=== PATIENT | female | born 1935 | race Caucasian/White ===

== ENCOUNTER 2016-12-23 22:29 | Outpatient (CLI) | payer MEDICARE, OTHER | END 2016-12-23 22:30 | disposition short-term general hospital (02) | LOC: EMS 22:29 | PROVIDERS: ATTEND Surgery | DX: R68.89 Other general symptoms and signs (principal); Z79.01 Long term (current) use of anticoagulants | CPT/HCPCS: A0425; A0429 ==

== ENCOUNTER 2017-10-01 09:12 | Outpatient (CLI) | payer MEDICARE, OTHER ==
[2017-10-01] MEDS ORDERED: ALBUTEROL NEB 2.5 MG/3 ML INH ONE (11:00)
== END 2017-10-01 09:13 | disposition home or self-care (01) ==
LOC: RT 09:12
PROVIDERS: ATTEND Internal Medicine
DX: R06.00 Dyspnea, unspecified (principal)
CPT/HCPCS: 94060; 94664; 94729

== ENCOUNTER 2022-02-08 15:00 | Outpatient (CLI) | payer MEDICARE, OTHER ==
[2022-02-08 16:15] VITALS: BP 124/62
--- NOTE | 2022-02-08 16:15 | SLEEP CARE CONSULTATION ---
Information from patient questionnaire entered by Alba Meza. I have reviewed and concur with the information entered by Alba Meza. This document represents the service I personally performed and the decisions made by me, Leigha Ansari ARNP. History of Present Illness Service Date and Time: 02/08/2022 1500 Reason for Visit: New patient, Previously diagnosed sleep apnea, sleep apnea on CPAP therapy Accompanied by: grandchild Chief Complaint: reports: Other (update supplies) Usual bedtime: 10pm Time it takes to fall asleep: depends Snores at night: Yes Observed to quit breathing while asleep: Yes Sleeps alone due to snoring: No Number of times waking at night: 2 Reasons for waking at night: reports: Bathroom Toss, Turn, or Twitch while sleeping: Yes Recalls having dreams: Yes Usually gets out of bed at: anytime Feels refreshed in the morning: No Morning headache: No Sleepy or fatigued during the day: Yes Ever fallen asleep while driving: No Takes day naps: Yes Dreams during day naps: No Prior sleep studies: Yes Year and Where: [facility], unsure of date Additional HPI information: NIRAJ WILDE was previously diagnosed to have unknown, AHI unknown, sleep apnea- hypopnea syndrome and comes in today with granddaughter to establish care for BIPAP therapy. - Parasomnia Symptoms Ever been unable to move upon waking from sleep: No Walks in sleep: No Talks in sleep: Yes Ever acted out dreams in sleep: No Ever felt weak in the knees when startled or emotional: No Bothered by creepy, crawly, restless sensations in legs: No Problems with memory or concentration: No CPAP Compliance Data - Data Reviewed with Patient Average duration of nightly device use: 8 hours 27 minutes Compliance rate %: 100 (90/90 days used) Current pressure setting (cmH2O): 16/10 Average residual AHI: 24.3 Central apnea: 6 Obstructive apnea: 16.7 Hypopnea: 1.6 Compliance data discussion: She is getting her supplies from [facility]. She is using a nasal cushion that goes over her nose and the hose is in front. She changed her mask recently and has a backup mask if needed. Subjective Patient concerns: denies: aerophagia, mask discomfort, mask leak noise, condensation in mask/hose, nasal congestion, dry mouth, nose, throat, epistaxis Observed to snore while using device: No Current pressure setting perceived as: comfortable On therapy, patient: reports: sleeping better, awakening more refreshed, being more awake and alert during the day, more rested overall. denies: drowsiness while driving Initial [place] Sleepiness Scale score: 5 (02/08/2022) Past Medical History Past Medical History: reports: Hypertension, Arthritis, Arrythmia (Atrial fibrillation), Asthma, Other (A.FIB) Social History The patient's occupation is a RE. Patient is and lives in [place]. Have you smoked in the past 12 months: No Alcohol use: No Caffeine use: Yes Caffeine amount and frequency: 1 Pepsi a day Family History Family history of sleep disordered breathing: Yes Family Hx Sleep Apnea: Other: Snoring (SON), Sleep apnea - Treated (SON) Allergies and Home Medications Known drug allergies: No Drug allergies reviewed: Yes (NKDA) Home medication list reviewed: Yes (see scanned list) Review of Systems Weight loss over past 5 years: 25 Cardiovascular: reports: high blood pressure Respiratory: reports: wheeze Ear/Nose/Throat: reports: nasal congestion, tonsillectomy Musculoskeletal: reports: back pain, muscle pain or cramping Immunologic: reports: sneezing Physical Exam Vital signs obtained and entered by: ALBA Hernandez MA Blood Pressure: 124/62 (LEFT ARM) Cuff size: regular Heart Rate: 64 O2 Saturation: 99 Height: 5 ft 1 in Weight: 199 lb 3.2 oz Body Mass Index: 37.6 BMI Classification: Obese Neck circumference: 17 Heart: regular rate and rhythm Lungs: clear bilaterally Impression and Plan 1. Obstructive Sleep Apnea-Hypopnea Syndrome, unknown, with good treatment compliance and fair apnea control with elevated residual AHI. On BIPAP therapy, the patient has better sleep quality and is more rested overall. Patient has never had a follow-up with a sleep provider since she started using her BiPAP. Upon reviewing her therapy report her residual AHI is at 24.3. She states she thinks it starts at 4 but her machine is set at 16/10 centimeters H2O BiPAP settings. She does have an old REMstar Jess machine which may not be de livering appropriate pressure to control her sleep apnea. I will write a prescription to update her BIPAP machine. We will try to obtain a copy of her last sleep study from [facility]. If unable to do this I will order a sleep study to verify her diagnosis and severity. Patient voiced understanding and agreement with plan of care. Patient's apnea severity and rationale for treatment to reduce apnea, improve sleep quality and reduce cardiovascular and cerebrovascular events was reviewed. I also reviewed the benefit of consistent device use of BIPAP for hypertension, arrhythmia and asthma. 2. Obesity, unspecified. Currently patients BMI is 37.6. Obesity increases the risk of apnea, CPAP pressure requirements and overall health risks especially cardiovascular and diabetes. Thus patient is advised to continue to try to lose weight. Weight loss can be done with reducing portion size, reducing refined foods and balancing content with vegetables, fruit and whole grain foods. In addition, patient encouraged to get regular exercise. * Try to obtain copy of last sleep study * Continue BIPAP pressure at 16/10 cmH2O * Update supplies * Notify me if snoring with mask or feeling that the pressure is too much or too little * Attempt to lose weight * Call this office if any problems using CPAP * Return for follow up one month after obtaining new device, or sooner if concerns arise Counseling Topics: Spare mask, Weight loss health impact Prescriptions: BiPAP, Device supplies Visit Type: In Office Time Spent with Patient (minutes): 35 Provider Statement: I spent 100% of the Face to Face Visit with the patient with greater than 50% spent counseling the patient and coordination of care.
== END 2022-02-08 15:01 | disposition home or self-care (01) ==
LOC: SC 15:00
PROVIDERS: ATTEND Nurse Practitioner Family
DX: G47.33 Obstructive sleep apnea (adult) (pediatric) (principal); E66.9 Obesity, unspecified; Z68.37 Body mass index [BMI] 37.0-37.9, adult
CPT/HCPCS: 99203; G0463; 99212

== ENCOUNTER 2022-04-06 19:35 | Outpatient (CLI) | payer MEDICARE, OTHER | END 2022-04-06 19:36 | disposition home or self-care (01) | LOC: SC 19:35 | PROVIDERS: ATTEND Nurse Practitioner Family | DX: G47.33 Obstructive sleep apnea (adult) (pediatric) (principal); I48.91 Unspecified atrial fibrillation; G47.61 Periodic limb movement disorder | CPT/HCPCS: 95810 ==

== ENCOUNTER 2022-04-18 16:25 | Outpatient (CLI) | payer MEDICARE, OTHER ==
--- NOTE | 2022-04-18 16:09 | SLEEP CARE CONSULTATION ---
Information from patient questionnaire entered by Alba Meza. I have reviewed and concur with the information entered by Alba Meza. This document represents the service I personally performed and the decisions made by me, Leigha Ansari ARNP. History of Present Illness Service Date and Time: 04/18/2022 1540 Accompanied by: Daughter Initial [place] Sleepiness Scale score: 5 (02/08/2022) Current [place] Sleepiness Scale score: 0 (04/18/22) Additional HPI information: NIRAJ WILDE returns via video Telehealth visit for follow up and results of the recently performed polysomnography. Patient with history of BIPAP use for her sleep apnea with settings at 16/10 cmH2O. She will continue BIPAP use. She is in need of a new device and supplies. Patient does not drink alcohol. Patient was cautioned about risks of drowsy driving until sleepiness symptoms resolve. Patient denies drowsy driving. Sleep Study - Results Type of Sleep Study: Polysomnography (COMPLETED 04/06/22) Prior sleep studies: Yes Year and Where: [place], unsure of date Polysomnography/Home Sleep Study results: IMPRESSION: The quality of the study is good. The patient had reduced sleep efficiency due to frequent and prolonged awakenings throughout the night. The sleep architecture was abnormal for sleep fragmentation and lack of slow wave sleep (N3). Respiratory monitoring showed severe obstructive sleep apnea-hypopnea (AHI = 35.0) associated with frequent arousals, oxyhemoglobin desaturation and moderate hypoxia ([place]ton oxygen saturation of 74%). There appeared to also be REM-related hypoventilation. The respiratory events occurred independently of sleep stage and body position (supine AHI = 40.0; non-supine = 35.00). Snore was infrequent and light in intensity. There was moderate periodic leg movement of sleep contributing to the sleep fragmentation. Cardiac rhythm was atrial fibrillation. No abnormal behavior (parasomnia) observed during the night. Allergies and Home Medications Drug allergies reviewed: Yes (NKDA) Home medication list reviewed: Yes (no changes) Review of Systems Review of systems same as previous: Yes (no changes) Physical Exam Vital signs obtained and entered by: ALBA Hernandez MA Height: 5 ft (PER PT) Weight: 200 lb (PER PT) Body Mass Index: 39.0 BMI Classification: Obese Impression and Plan 1. Obstructive Sleep Apnea-Hypopnea Syndrome, severe, with lowest oxygen saturation of 74%. Obviously this is the cause of the patients symptoms of unrefreshed sleep, and excessive daytime sleepiness. Positive pressure therapy could benefit atrial fibrillation, hypertension and asthma. As mentioned above, the patient will be continued on the nasal BIPAP therapy with pressure set at 16/10 cmH2O. Compliance guidelines also reviewed. She will call when she has her new device to set up a compliance follow up. 2. Atrial fibrillation. Patient has a history of atrial fibrillation. She will follow up with her courier driver as needed. 3. Hypoxemia, moderate, with a payton oxygen saturation of 74% and 19.9 minutes spent under 90%. Her baseline oxygen saturation was normal with an average oxygen saturation of 93%. 4. Periodic limb movement, moderate, that did fragment patients sleep. Periodic limb movement of sleep (PLMS) is characterized by episodes of repetitive limb movements that occur during sleep and usually involve the lower limbs. The etiology is unknown. Caffeine can also aggravate PLMS and should be avoided. Sleep hygiene methods can also improve sleep as well as lifestyle changes such as regular exercise. Patient was advised that no treatment is needed at this time. If symptoms increase, then further evaluation is indicated. * Continue BiPAP therapy, pressure at 16/10 cmH2O. * Update machine * Update supplies * Attempt to lose weight. * Avoid alcohol consumption near bedtime. * Avoid supine sleep until using BIPAP. * The patient is again cautioned about driving until sleepiness completely resolves. * Return one month after BiPAP obtained. I will assess response to therapy and compliance at that time. Counseling Topics: Weight loss health impact Prescriptions: BiPAP (update), Device supplies Visit Type: Telehealth Phone Video Type: Chaz Patient Location: Home Other Participants: Child (daughter) Location of Provider: Office Patient agrees and consents to this telehealth visit type: Yes Patient agrees to have their insurance billed: Yes Time Spent with Patient (minutes): 14 Provider Statement: I spent 100% of the Telehealth Phone Call with the patient with greater than 50% spent counseling the patient and coordination of care.
== END 2022-04-18 16:26 | disposition home or self-care (01) ==
LOC: SC 16:25
PROVIDERS: ATTEND Nurse Practitioner Family
DX: G47.33 Obstructive sleep apnea (adult) (pediatric) (principal); I48.91 Unspecified atrial fibrillation; R09.02 Hypoxemia; G47.61 Periodic limb movement disorder; E66.9 Obesity, unspecified; Z68.39 Body mass index [BMI] 39.0-39.9, adult

== ENCOUNTER 2022-06-01 10:02 | Outpatient (CLI) | payer MEDICARE, OTHER ==
[2022-06-01 10:48] VITALS: BP 124/72
--- NOTE | 2022-06-01 10:48 | SLEEP CARE CONSULTATION ---
Information from patient questionnaire entered by Alba Meza. I have reviewed and concur with the information entered by Alba Meza. This document represents the service I personally performed and the decisions made by me, Leigha Ansari ARNP. History of Present Illness Service Date and Time: 06/01/2022 1002 Previous diagnosis: Severe, Obstructive Sleep Apnea-Hypopnea Syndrome AHI: 35.0 (in 2021) Reason for follow up: first compliance, first compliance after device update Accompanied by: Liz Equipment type: CPAP (RESMED Aircurve 10 s/u 04/30/2022) Equipment obtained from: [employer] (getting supplies) Mask style: Nasal (over the nose) Mask brand: Respironics (Isabel) Backup mask available: No (will keep old mask when replaced) Last cushion change: December Prior sleep studies: Yes Year and Where: [facility], unsure of date HPI additional information: NIRAJ WILDE was diagnosed to have severe, AHI 35.0, obstructive sleep apnea- hypopnea syndrome and returned today for BIPAP therapy first compliance after updating device follow-up. Sleep Study - Results Prior sleep studies: Yes Year and Where: [facility], unsure of date CPAP Compliance Data - Data Reviewed with Patient Average duration of nightly device use: 9 HRS 7 MIN Compliance rate %: 100 (05/01/22-05/30/22; 30/30 days used) Current pressure setting (cmH2O): 16/10 Average residual AHI: 14.3 Central apnea: 0.2 Obstructive apnea: 5.3 Average large leak: 25.2 LPM Subjective Patient concerns: reports: condensation in mask/hose (twice, better now). denies: aerophagia, mask discomfort, air blowing in eyes, mask leak noise, nasal congestion, dry mouth, nose, throat, epistaxis Observed to snore while using device: No Current pressure setting perceived as: comfortable On therapy, patient: reports: sleeping better, awakening more refreshed, being more awake and alert during the day, more rested overall. denies: drowsiness while driving (does not drive usually) Initial [place] Sleepiness Scale score: 5 (02/08/2022) Current [place] Sleepiness Scale score: 2 (06/01/22) Allergies and Home Medications Known drug allergies: Yes Drug allergies reviewed: Yes Home medication list reviewed: Yes (no changes) Review of Systems Review of systems same as previous: Yes (no changes) Physical Exam Vital signs obtained and entered by: ALBA Hernandez MA Blood Pressure: 124/72 (LEFT ARM) Cuff size: long Heart Rate: 64 O2 Saturation: 96 Height: 5 ft 1 in Weight: 191 lb 3.2 oz Body Mass Index: 36.1 BMI Classification: Obese Impression and Plan 1. Obstructive Sleep Apnea-Hypopnea Syndrome, severe, with good treatment compliance and fair apnea control with elevated residual AHI. On BiPAP therapy, the patient has better sleep quality and is more rested overall. She was accompanied by her granddaughter today. She feels the pressure is comfortable but her residual AHI is elevated. The patients pressure will be changed to BiP AP 17/10 cmH20. Patient advised to contact me if pressure change is uncomfortable so that it can be adjusted. Goals for apnea control discussed. Patient's apnea severity and rationale for treatment to reduce apnea, improve sleep quality and reduce cardiovascular and cerebrovascular events was reviewed. I also reviewed the benefit of consistent device use of BiPAP for hypertension, arrhythmia and asthma. I will have her follow up in 1-2 months. 2. Obesity, unspecified. Currently patients BMI is 36.1. Obesity increases the risk of apnea, BiPAP pressure requirements and overall health risks especially cardiovascular and diabetes. Thus patient is advised to lose weight. * Change BiPAP pressure to 17/10 cmH2O * Notify me if snoring with mask or feeling that the pressure is too much or too little * Attempt to lose weight * Call this office if any problems using CPAP * Return for follow up in 1-2 months, or sooner if concerns arise Counseling Topics: Spare mask, Weight loss health impact Visit Type: In Office Other Participants: Other (granddaughter) Time Spent with Patient (minutes): 20 Provider Statement: I spent 100% of the Face to Face Visit with the patient with greater than 50% spent counseling the patient and coordination of care.
== END 2022-06-01 10:03 | disposition home or self-care (01) ==
LOC: SC 10:02
PROVIDERS: ATTEND Nurse Practitioner Family
DX: G47.33 Obstructive sleep apnea (adult) (pediatric) (principal); E66.9 Obesity, unspecified; Z68.36 Body mass index [BMI] 36.0-36.9, adult
CPT/HCPCS: 99213; G0463; 99212

== ENCOUNTER 2022-07-10 12:47 | Outpatient (CLI) | payer MEDICARE, OTHER ==
[2022-07-10 13:16] VITALS: BP 120/60
--- NOTE | 2022-07-10 13:16 | SLEEP CARE CONSULTATION ---
Information from patient questionnaire entered by Alba Meza. I have reviewed and concur with the information entered by Alba Meza. This document represents the service I personally performed and the decisions made by , Leigha Ansari ARNP. History of Present Illness Service Date and Time: 07/10/2022 1247 Previous diagnosis: Severe, Obstructive Sleep Apnea-Hypopnea Syndrome AHI: 35.0 Reason for follow up: other (6 WEEK F/U) Accompanied by: Caregiver Equipment type: CPAP (RESMED AirCurve 10 VAuto; s/u 04/2022) Equipment obtained from: [employer] (getting supplies) Mask style: Nasal (over the nose) Backup mask available: No (will keep old mask when replaced) Last cushion change: couple days ago Prior sleep studies: Yes Year and Where: [facility], unsure of date HPI additional information: NIRAJ WILDE was diagnosed to have severe, AHI 35.0, obstructive sleep apnea- hypopnea syndrome and returned today for BIPAP therapy six week follow-up. Sleep Study - Results Prior sleep studies: Yes Year and Where: [facility], unsure of date CPAP Compliance Data - Data Reviewed with Patient Average duration of nightly device use: 9 HRS 40 MINS Compliance rate %: 100 (06/09/22-07/08/22; 30/30 days used) Current pressure setting (cmH2O): 17/10 Average residual AHI: 12.5 Central apnea: 0.5 Obstructive apnea: 5.1 Hypopnea: 0.1 Average large leak: 23.4 lpm Subjective Patient concerns: denies: aerophagia, mask discomfort, air blowing in eyes, mask leak noise, condensation in mask/hose, nasal congestion, dry mouth, nose, throat, epistaxis Observed to snore while using device: No Current pressure setting perceived as: comfortable On therapy, patient: reports: sleeping better, awakening more refreshed, being more awake and alert during the day, more rested overall. denies: drowsiness while driving (not driving) Initial [place] Sleepiness Scale score: 5 (02/08/2022) Current [place] Sleepiness Scale score: 1 (07/10/22) Allergies and Home Medications Known drug allergies: No Drug allergies reviewed: Yes Home medication list reviewed: Yes (no changes) Allergy and home medication list: Allergies No Known Drug Allergies Allergy (Verified 07/09/22 16:14) Review of Systems Review of systems same as previous: Yes (no changes) Physical Exam Vital signs obtained and entered by: ALBA Hernandez MA Blood Pressure: 120/60 (LEFT ARM) Cuff size: regular Heart Rate: 64 O2 Saturation: 99 Height: 5 ft 1 in Weight: 187 lb Body Mass Index: 35.3 BMI Classification: Obese Impression and Plan 1. Obstructive Sleep Apnea-Hypopnea Syndrome, severe, with good treatment compliance and fair apnea control with elevated residual AHI. On BIPAP therapy, the patient has better sleep quality and is more rested overall. She states she has no problems with her BIPAP. She puts it on and goes to sleep. She continues to have an elevated residual AHI with mild improvement since her last visit. Patient is comfortable with trying higher pressures. The patients pressure will be changed to autoCPAP 18/12 cmH20 for elevation of residual AHI. Patient advised to contact me if pressure change is uncomfortable so that it can be adjusted. Goals for apnea control discussed. We will follow up with her in 3 months. Patient's apnea severity and rationale for treatment to reduce apnea, improve sleep quality and reduce cardiovascular and cerebrovascular events was reviewed. I also reviewed the benefit of consistent device use of BIPAP for hypertension, arrhythmia and asthma. 2. Obesity, unspecified. Currently patients BMI is 35.3. Obesity increases the risk of apnea, BIPAP pressure requirements and overall health risks especially cardiovascular and diabetes. Thus patient is advised to lose weight. * Change BIPAP pressure to 18/12 cmH2O * Notify me if snoring with mask or feeling that the pressure is too much or too little * Attempt to lose weight * Call this office if any problems using BIPAP * Return for follow up in 3 months, or sooner if concerns arise Counseling Topics: Spare mask, Weight loss health impact Follow up with Sleep Care in: 3 months Visit Type: In Office Time Spent with Patient (minutes): 20 Provider Statement: I spent 100% of the Face to Face Visit with the patient with greater than 50% spent counseling the patient and coordination of care.
== END 2022-07-10 12:48 | disposition home or self-care (01) ==
LOC: SC 12:47
PROVIDERS: ATTEND Nurse Practitioner Family
DX: G47.33 Obstructive sleep apnea (adult) (pediatric) (principal); E66.9 Obesity, unspecified; Z68.35 Body mass index [BMI] 35.0-35.9, adult
CPT/HCPCS: 99213; G0463; 99212

== ENCOUNTER 2023-06-16 12:24 | Outpatient (CLI) | payer MEDICARE, OTHER | END 2023-06-16 12:25 | disposition short-term general hospital (02) | LOC: EMS 12:24 | DX: K62.5 Hemorrhage of anus and rectum (principal); K64.9 Unspecified hemorrhoids; K59.00 Constipation, unspecified | CPT/HCPCS: A0425; A0429 ==